=== PATIENT | male | born 1980 ===

== ENCOUNTER 2022-01-18 20:17 | Emergency (ER) | payer OTHER ==
[~2022-01-18] VITALS: Ht 188 cm; Wt 96.6 kg
== END 2022-01-19 00:08 | disposition home or self-care (01) ==
LOC: ER 20:17
DX: S63.105A Unspecified dislocation of left thumb, initial encounter (principal); X58.XXXA Exposure to other specified factors, initial encounter; Y93.89 Activity, other specified; Y92.009 Unspecified place in unspecified non-institutional (private) residence as the place of occurrence of the external cause; Y99.9 Unspecified external cause status; Z91.041 Radiographic dye allergy status